=== PATIENT | female | born 1935 | race Caucasian/White ===

== ENCOUNTER 2020-06-01 17:15 | Inpatient (IN) ==
[2020-06-01] MEDS ORDERED: Ondansetron ODT 4 MG TAB.RAPDIS SL PRN (22:38)
[2020-06-01] MEDS ORDERED: Naloxone 0.4 MG/ML INJ IVP PRN ×2 (22:38→23:38)
[2020-06-02] MEDS: Ringers Solution, Lactated 1,000 ML IVC SCH ×2 (00:01→08:59)
[2020-06-02 07:57] LABS: Basophils % 0.3 %; Hematocrit 30.7 % (35.3-44.9); Hemoglobin 10.1 g/dL (11.5-15.4); Immature Granulocytes % 0.6 % (0-4); Lymphocytes # 1.7 K/mcL (0.6-4.6); Lymphocytes % 17.5 %; Mean Corpuscular HGB Conc 32.9 g/dL (31.6-35.5); Mean Corpuscular Hemoglobin 30.2 pg (28.0-33.3); Mean Corpuscular Volume 91.9 fL (83.0-100.0); Mean Platelet Volume 9.8 fL (9.4-12.4); Monocytes % 10.1 %; Neutrophils # 6.8 K/mcL (1.6-8.9); Platelet Count 205 K/mcL (140-400); Red Blood Count 3.34 M/mcL (3.82-4.97); Red Cell Distribution Width 13.2 % (11.5-14.5); Segmented Neutrophils % 71.5 %; White Blood Count 9.5 K/mcL (4.3-11.1)
[2020-06-02 08:06] LABS: Calcium 8.8 mg/dL (8.6-10.3); Potassium 3.9 mEq/L (3.5-5.1)
[2020-06-02] MEDS ORDERED: CITALOPRAM PO SCH (09:00)
[2020-06-02] MEDS ORDERED: Promethazine 6.25 MG in Water for inj. (sterile) 20 ML IVPB PRN ×2 (15:46→19:30)
[2020-06-02] MEDS ORDERED: *HR* HYDROmorphone PF 0.5 MG/0.5 ML SYRINGE IVP PRN ×2 (15:46→19:30)
[2020-06-02] MEDS ORDERED: *HR* OxyCODONE Immed Rel 5 MG TABLET PO PRN ×2 (15:46→19:30)
[2020-06-02] MEDS ORDERED: Ondansetron 4 MG/2 ML VIAL IVP PRN ×2 (15:46→19:30)
[2020-06-02] MEDS ORDERED: Vancomycin 1,000 MG VIAL ONE (16:17)
[2020-06-02] MEDS ORDERED: Ethanol\\Acetic Acid\\Na Ace\\Ben 1,000 ML IRRIG.SOLN IR ONE (16:17)
[2020-06-02] MEDS ORDERED: Lidocaine -MPF 2% 2 ML VIAL ONE (16:25)
[2020-06-02] MEDS ORDERED: Dexamethasone 4 MG/ML VIAL ONE (16:25)
[2020-06-02] MEDS ORDERED: *HR* Succinylcholine 200 MG/10 ML VIAL IVP ONE (16:25)
[2020-06-02] MEDS ORDERED: Ondansetron 4 MG/2 ML VIAL ONE (16:25)
[2020-06-02] MEDS ORDERED: Lidocaine HCL 4 ML Topical Solution (Laryng-O-Jet Kit Sterile Pak) TP ONE (16:25)
[2020-06-02] MEDS ORDERED: *HR* FentaNYL (PF) 100 MCG/2 ML VIAL ONE (16:26)
[2020-06-02] MEDS ORDERED: *HR* Propofol 200 MG/20 ML VIAL IVP ONE (16:26)
[2020-06-02] MEDS ORDERED: Clindamycin 900 MG/50 ML 900 MG/50 ML IV.SOLN IVPB ONE (17:17)
[2020-06-02] MEDS ORDERED: Naloxone 0.4 MG/ML INJ IVP PRN ×2 (19:30)
[2020-06-02] MEDS ORDERED: Ondansetron ODT 4 MG TAB.RAPDIS SL PRN (19:30)
[2020-06-03] MEDS ORDERED: Clindamycin 900 MG/50 ML 900 MG/50 ML IV.SOLN IVPB SCH
[2020-06-03] MEDS ORDERED: NON-FORMULARY MEDICATION 1 EACH EACH (Losartan Potassium [Cozaar] 50 MG) PO SCH (09:00)
[2020-06-03] MEDS ORDERED: NON-FORMULARY MEDICATION 1 EACH EACH (Omeprazole [Prilosec] 40 MG) PO SCH (09:00)
[2020-06-03] MEDS: Lactobacillus 1 EACH CAP.SPRINK PO SCH (09:51)
[2020-06-03] MEDS: Aspirin Enteric Coated 325 MG Tablet PO SCH (09:51)
[2020-06-03] MEDS: Clindamycin 900 MG/50 ML 900 MG/50 ML IV.SOLN IVPB SCH ×2 (09:52→17:13)
[2020-06-04] MEDS: Clindamycin 900 MG/50 ML 900 MG/50 ML IV.SOLN IVPB SCH (00:08)
[2020-06-04 05:15] LABS: Hematocrit 24.3 % (35.3-44.9); Mean Corpuscular HGB Conc 31.7 g/dL (31.6-35.5); Mean Corpuscular Hemoglobin 30.7 pg (28.0-33.3); Mean Corpuscular Volume 96.8 fL (83.0-100.0); Platelet Count 145 K/mcL (140-400); Red Blood Count 2.51 M/mcL (3.82-4.97); Red Cell Distribution Width 13.8 % (11.5-14.5)
[2020-06-04 05:16] LABS: Hemoglobin 7.7 g/dL (11.5-15.4)
[2020-06-04 05:27] LABS: Calcium 8.5 mg/dL (8.6-10.3); Potassium 3.8 mEq/L (3.5-5.1)
[2020-06-04] MEDS: Aspirin Enteric Coated 325 MG Tablet PO SCH (09:18)
[2020-06-04] MEDS: Lactobacillus 1 EACH CAP.SPRINK PO SCH (09:21)
[2020-06-04] MEDS ORDERED: 0.9 % Sodium Chloride 250 ML IVC SCH (12:00)
[2020-06-04] MEDS ORDERED: Morphine Sulfate 2 MG/ML SYRINGE IVP ONE (23:06)
[2020-06-04] MEDS ORDERED: Acetaminophen 325 MG TABLET PO ONE (23:15)
[2020-06-05 02:05] LABS: Hematocrit 29.9 % (35.3-44.9)
[2020-06-05 08:04] LABS: BUN/Creatinine Ratio 45 (6-26); Blood Urea Nitrogen 35 mg/dL (8-23); Calcium 8.5 mg/dL (8.6-10.3); Carbon Dioxide 26 mEq/L (23-29); Chloride 109 mEq/L (98-107); Glucose 135 mg/dL (70-105); Magnesium 1.6 mg/dL (1.6-2.6); Osmolality,Calculated 302 (280-300); Sodium 141 mEq/L (136-145); eGFR For African Americans > 60 (> 60); eGFR For Non-African Americans > 60 (> 60)
[2020-06-05] MEDS: Aspirin Enteric Coated 325 MG Tablet PO SCH (11:03)
[2020-06-05] MEDS: Lactobacillus 1 EACH CAP.SPRINK PO SCH (11:05)
[2020-06-05] MEDS ORDERED: Perflutren Lipid Microsphere 1.3 ML in 0.9 % Sodium Chloride 8.7 ML IVP PRN (11:10)
[2020-06-05 11:52] LABS: Basophils % 0.2 %; Eosinophils # 0.1 K/mcL (0.0-0.6); Eosinophils % 2.8 %; Hematocrit 33.1 % (35.3-44.9); Hemoglobin 10.3 g/dL (11.5-15.4); Immature Granulocytes % 0.2 % (0-4); Lymphocytes # 0.9 K/mcL (0.6-4.6); Lymphocytes % 19.3 %; Mean Corpuscular HGB Conc 31.1 g/dL (31.6-35.5); Mean Corpuscular Hemoglobin 29.9 pg (28.0-33.3); Mean Corpuscular Volume 95.9 fL (83.0-100.0); Mean Platelet Volume 9.9 fL (9.4-12.4); Monocytes # 0.5 K/mcL (0.0-1.3); Neutrophils # 3.1 K/mcL (1.6-8.9); Platelet Count 165 K/mcL (140-400); Red Blood Count 3.45 M/mcL (3.82-4.97); Red Cell Distribution Width 14.6 % (11.5-14.5); Segmented Neutrophils % 66.5 %; White Blood Count 4.7 K/mcL (4.3-11.1)
[2020-06-05] MEDS ORDERED: hydrOXYzine pamoate 25 MG CAPSULE PO ONE (15:56)
[2020-06-05] MEDS: *HR* Enoxaparin 60 MG/0.6 ML SYRINGE SQ SCH (18:22)
[2020-06-06] MEDS: *HR* Enoxaparin 60 MG/0.6 ML SYRINGE SQ SCH (06:12)
[2020-06-06] MEDS: Lactobacillus 1 EACH CAP.SPRINK PO SCH (09:23)
[2020-06-06 14:34] LABS: Basophils % 0.4 %; Eosinophils # 0.1 K/mcL (0.0-0.6); Eosinophils % 1.7 %; Hematocrit 31.5 % (35.3-44.9); Hemoglobin 9.9 g/dL (11.5-15.4); Immature Granulocytes % 0.2 % (0-4); Lymphocytes # 0.6 K/mcL (0.6-4.6); Lymphocytes % 13.2 %; Mean Corpuscular HGB Conc 31.4 g/dL (31.6-35.5); Mean Corpuscular Hemoglobin 30.7 pg (28.0-33.3); Mean Corpuscular Volume 97.5 fL (83.0-100.0); Mean Platelet Volume 9.7 fL (9.4-12.4); Monocytes # 0.5 K/mcL (0.0-1.3); Monocytes % 9.6 %; Neutrophils # 3.6 K/mcL (1.6-8.9); Platelet Count 202 K/mcL (140-400); Red Blood Count 3.23 M/mcL (3.82-4.97); Red Cell Distribution Width 13.9 % (11.5-14.5); Segmented Neutrophils % 74.9 %; White Blood Count 4.8 K/mcL (4.3-11.1)
[2020-06-06 14:55] LABS: Alanine Aminotransferase 26 Units/L (7-52); Albumin/Globulin Ratio 1.1 (1.1-2.2); Alkaline Phosphatase 78 Units/L (34-104); Aspartate Amino Transferase 34 Units/L (13-39); BUN/Creatinine Ratio 42 (6-26); Bilirubin,Total 0.5 mg/dL (0.3-1.0); Blood Urea Nitrogen 36 mg/dL (8-23); Calcium 9.3 mg/dL (8.6-10.3); Carbon Dioxide 29 mEq/L (23-29); Chloride 105 mEq/L (98-107); Globulin 2.7 g/dL (2.4-3.5); Glucose 170 mg/dL (70-105); Osmolality,Calculated 306 (280-300); Potassium 4.1 mEq/L (3.5-5.1); Sodium 142 mEq/L (136-145); Total Protein 5.7 g/dL (6.4-8.9); eGFR For African Americans > 60 (> 60); eGFR For Non-African Americans > 60 (> 60)
[2020-06-07] MEDS: Lactobacillus 1 EACH CAP.SPRINK PO SCH (08:11)
[2020-06-07] MEDS ORDERED: Aspirin 325 MG TABLET PO SCH (09:00)
[2020-06-07 10:40] LABS: Hematocrit 28.7 % (35.3-44.9); Hemoglobin 9.3 g/dL (11.5-15.4); Mean Corpuscular HGB Conc 32.4 g/dL (31.6-35.5); Mean Corpuscular Hemoglobin 30.4 pg (28.0-33.3); Mean Corpuscular Volume 93.8 fL (83.0-100.0); Mean Platelet Volume 10.3 fL (9.4-12.4); Platelet Count 200 K/mcL (140-400); Red Blood Count 3.06 M/mcL (3.82-4.97); Red Cell Distribution Width 13.6 % (11.5-14.5); White Blood Count 6.5 K/mcL (4.3-11.1)
[2020-06-07] MEDS ORDERED: hydrOXYzine pamoate 25 MG CAPSULE PO STA (11:24)
[2020-06-07 12:14] LABS: Alanine Aminotransferase 56 Units/L (7-52); Albumin 2.9 g/dL (3.5-5.7); Alkaline Phosphatase 82 Units/L (34-104); Aspartate Amino Transferase 71 Units/L (13-39); BUN/Creatinine Ratio 47 (6-26); Bilirubin,Total 0.6 mg/dL (0.3-1.0); Blood Urea Nitrogen 40 mg/dL (8-23); Calcium 9.3 mg/dL (8.6-10.3); Carbon Dioxide 28 mEq/L (23-29); Chloride 104 mEq/L (98-107); Globulin 2.8 g/dL (2.4-3.5); Glucose 119 mg/dL (70-105); Osmolality,Calculated 303 (280-300); Potassium 3.5 mEq/L (3.5-5.1); Sodium 141 mEq/L (136-145); Total Protein 5.7 g/dL (6.4-8.9); eGFR For African Americans > 60 (> 60); eGFR For Non-African Americans > 60 (> 60)
[2020-06-07] MEDS: Vancomycin Oral Soln 125 MG/2.5 ML UDC PO SCH ×2 (12:28→13:26)
[2020-06-07 14:59] VITALS: BP 100/53
[2020-06-07 15:07] LABS: Adenovirus Not Detected (Not Detect); Coronavirus 229E Not Detected (Not Detect); Coronavirus HKU1 Not Detected (Not Detect); Coronavirus NL63 Not Detected (Not Detect); Coronavirus OC43 Not Detected (Not Detect); Human Metapneumovirus Not Detected (Not Detect); Human Rhinovirus/Enterovirus Not Detected (Not Detect); Influenza A Subtype 2009 H1 Not Detected (Not Detect); Influenza B Not Detected (Not Detect); Parainfluenza Virus 1 Not Detected (Not Detect); Parainfluenza Virus 2 Not Detected (Not Detect); Parainfluenza Virus 3 Not Detected (Not Detect); Parainfluenza Virus 4 Not Detected (Not Detect); Respiratory Syncytial Virus Not Detected (Not Detect); SARS-CoV-2 Not Detected (Not Detect)
[2020-06-07 15:08] LABS: Bordetella Pertussis Not Detected (Not Detect); Chlamydophila pneumoniae Not Detected (Not Detect); Mycoplasma pneumoniae Not Detected (Not Detect)
== END 2020-06-07 16:56 | disposition home health service (06) | DRG 522 ==
LOC: 3NENU → SUATTDRO 21:23
PROVIDERS: ADMIT Internal Medicine; ATTEND Internal Medicine